=== PATIENT | female | born 1985 | race Caucasian/White ===

== ENCOUNTER → 2017-06-23 | Outpatient (CLI) | payer OTHER ==
[2017-06-23 16:40] VITALS: BP 105/95; PULSE 70; TEMP 98.4; BMI 27.7
--- NOTE | 2017-07-04 13:06 | P.HPBAR ---
Bariatric H&P - History & Physicial H&P Date: 06/23/17 History & Physicial: Visit/CC: sleeve follow up Patient initial contact: Initial weight: Initial weight in pounds: Height: 5 ft 7 in Initial BMI: Last weight: 250 Current weight: 80.286 kg Current weight in pounds: 177.00 Current BMI: 27.7 [place] body weight (based on NIH guidelines): 61.235 kg Excess body weight loss: The patient is a 31 year-old F who presents for Bariatric Assessment.patient resents today for sleeve gastrectomy follow-up.she has some mild complaint of GERD. Past Medical History Past Medical History: Blood Disorder Additional Past Medical History / Comment(s): hemochromatosis History of Any Multi-Drug Resistant Organisms: None Reported Past Surgical History: Cholecystectomy Past Anesthesia/Blood Transfusion Reactions: No Reported Reaction Past Psychological History: Anxiety Smoking Status: Current some day smoker Past Alcohol Use History: None Reported Additional Past Alcohol Use History / Comment(s): 1/2 pack per day Past Drug Use History: None Reported Surgical - Exam Vital Signs Temp Pulse BP 98.4 F 70 105/95 06/23/17 16:37 06/23/17 16:37 06/23/17 16:37 - General well developed, no distress, moderate distress - Abdomen Abdomen: soft, non tender Bariatric Assessment & Plan Plan: status post sleeve ingastrectomy. Her GERD symptoms are minimal and will be observed. Bariatric Checklist Checklist: Plan: Checklist: EGD: 1. Hiatal hernia: 2. H. Pylori: HgbA1c: Vitamin D: Smoking: Current some day smoker Primary care physician referral: Psychiatry clearance: Cardiology clearance: Sleep study: Diet journal: VTE risk score: VTE risk level: Rehab needs at discharge:
== END | disposition home or self-care (01) ==
LOC: BARWHC3 16:10
PROVIDERS: ATTEND Surgery
DX: Z48.815 Encounter for surgical aftercare following surgery on the digestive system (principal); K21.9 Gastro-esophageal reflux disease without esophagitis; F17.200 Nicotine dependence, unspecified, uncomplicated
CPT/HCPCS: 99201